=== PATIENT | female | born 1985 | race Caucasian/White ===

== ENCOUNTER 2021-12-07 19:18 | Outpatient (CLI) | payer BC ==
[~2021-12-07] VITALS: Ht 172.7 cm; Wt 127.2 kg
--- NOTE | 2021-12-07 19:25 | NUR ---
G1L0. 39.4. Ambulatory to LDR 6 with significant other. Clean gown on. EFM and TOCO explained and applied. Pt states she has been michele since 329 today. Reports contractions are about 10mins apart and states pain is all in her back. Denies leaking of fluids or vaginal bleeding. Pt states "I have not been focusing on babies movments but feels like he is moving." Plan of care explained. VS and assessment completed. SVE /-2. 2101: called and updated on pt's status and FHR baseline. Provider reviews FHR strip at home. Orders received. See yiscan notification. 2113: Pt up to the bathroom. 2129: IV started and LR bolus infusing without difficulty. Plan of care explained. Pt sitting on edge of bed and EFM adjusted.
[2021-12-07] MEDS ORDERED: SYNTHROID0.075 MG/T PO (19:43)
[2021-12-07] MEDS ORDERED: SYNTHROID0.175 MG PO (19:44)
[2021-12-07] MEDS ORDERED: PRENATAL MVI PO (19:45)
[2021-12-07] MEDS ORDERED: STOOL SOFTENER100 M2 PO (19:45)
[2021-12-07] MEDS ORDERED: ZYRTEC ALLERGY10 MG PO (19:45)
[2021-12-07] MEDS ORDERED: CLARITIN 1010 MG/TAB PO (19:46)
[2021-12-07 20:00] VITALS: BP 133/80; PULSE 83; TEMP 98.4
[2021-12-07 20:30] VITALS: BP 127/68; PULSE 80
[2021-12-07 21:00] VITALS: BP 128/82; PULSE 85
[2021-12-07 21:30] VITALS: BP 130/74; PULSE 82
[2021-12-07 22:00] VITALS: BP 139/76; PULSE 77
--- NOTE | 2021-12-07 22:30 | NUR ---
IV fluids complete at this time. Pt reports contractions are not as strong since recieving the liter of fluids. IV DC'd. 2245: Discharge instructions given to pt and significant other. Denies questions at this time. Pt ambulatory off unit and home with spouse.
[2021-12-07 22:34] VITALS: BP 129/71; PULSE 85
== END 2021-12-07 22:45 | disposition home or self-care (01) ==
LOC: LDRO 19:18
DX: O47.1 False labor at or after 37 completed weeks of gestation (principal); Z3A.39 39 weeks gestation of pregnancy
CPT/HCPCS: J7120

== ENCOUNTER 2021-12-08 02:05 | Inpatient (IN) | payer BC ==
[~2021-12-08] VITALS: Ht 172.7 cm; Wt 127.2 kg
[2021-12-08] VITALS (38 sets, daily range): BP systolic 108–161; BP diastolic 59–89; PULSE 65–98; TEMP 97.5–97.9
[~2021-12-08 02:05] MED LIST: CLARITIN 1010 MG/TAB PO; PRENATAL MVI PO; STOOL SOFTENER100 M2 PO; SYNTHROID0.075 MG/T PO; SYNTHROID0.175 MG PO; ZYRTEC ALLERGY10 MG PO
--- NOTE | 2021-12-08 02:15 | NUR ---
G1LO 39.5. Return to hospital with increased frequency and pain with contractions. Clean gown on. EFM and TOCO applied. Pt states after she was discharged by the time she returned to hospital her contractions had increased. She tried to take tylenol and benadryl but was unable to get relief. Denies leaking of fluids or vaginal bleeding. States "I dont know if he has been moving." SVE completed and plan of care explained. Pt requesting epidural at this time. 0229: called and updated on pts status. See physican notification. 0240: IV started and labs obtained via IV site. LR bolus infusing without difficulty. 0300: Dilma RAMOS at bedside for epidural placement. Pt assisted to edge of bed. Difficulty tracing FHR due to maternal position and pain level sitting. Procedure explained by RESEARCH [employer] INSIGHTS EXECUTIVE. 0306: Single shot adminitered by Dilma RAMOS. See anesthesia records 0312: Pt assisted to wedge left position per pt's request. Plan of care and safety precautions exlained to pt who verbalized her understanding. Call light within reach. 0405: Vidal catheter inserted without difficulty. SVE 6/100/-2. Pericare provided. Pt going to try and get a nap in. Call light within reach.
[2021-12-08 02:56] LABS: BASO % 0.1 % (0.0-2.0); EOS % 0.1 % (0.0-4.0); GRAN # 9.9 K/mm3 (1.4-6.5); GRAN % 82.1 % (42.2-75.2); HEMOGLOBIN 11.1 g/dl (12.5-16.0); LYMPH # 1.4 K/mm3 (1.2-3.4); LYMPH % 11.3 % (20.0-51.0); MEAN CELL VOLUME 93 fl (80.0-100.0); MEAN CORPUSCULAR HEMOGLOBIN 31 pg (27-31); MEAN CORPUSCULAR HGB CONC 34 g/dl (33.0-37.0); MEAN PLATELET VOLUME 11.8 fl (7.4-10.4); MONO # 0.7 K/mm3 (0.1-0.6); MONO % 5.6 % (1.7-9.3); PLATELET COUNT 104 K/mm3 (130-400); RED BLOOD COUNT 3.53 M/mm3 (4.10-5.30); REDCELL DISTRIBUTION WIDTH-CV 14.1 % (11.5-14.5)
[2021-12-08 02:58] LABS: HEMATOCRIT 32.8 % (37.0-47.0)
[2021-12-08 06:01] LABS: COLLECTION METHOD CATHETER
[2021-12-08 06:10] LABS: MUCOUS Present (NOT PRESENT); SQUAMOUS EPITHELIAL 0-2 /hpf (0-10); URINE BACTERIA None Seen /hpf (NONE SEEN); URINE RBC 20-50 /hpf (0-2); URINE WBC 0-2 /hpf (0-2)
[2021-12-08 06:11] LABS: PH 5.5 (5-8); URINE APPEARANCE Clear (CLEAR/HAZY); URINE BLOOD 2+ (NEGATIVE); URINE COLOR Yellow (YELLOW); URINE GLUCOSE TRACE (NEGATIVE); URINE KETONE Negative (NEGATIVE); URINE NITRATE Negative (NEGATIVE); URINE PROTEIN(semi-quant) 1+ (NEGATIVE); URINE UROBILINOGEN 0.2 (NEGATIVE)
[2021-12-08 06:29] LABS: ALBUMIN 2.4 gm/dL (3.5-5.0); BILIRUBIN,TOTAL 0.2 mg/dL (0.2-1.2); CALCIUM 8.2 mg/dL (8.4-10.2); CREATININE, serum 0.61 mg/dL (0.57-1.11); POTASSIUM 3.7 mmol/L (3.5-4.5); TOTAL PROTEIN 5.7 gm/dL (6.2-8.1)
--- NOTE | 2021-12-08 10:54 | NUR ---
0945-SVE /+1 BY Elza RICH RN. PROVIDER NOTIFIED VIA TELEPHONE. ORDERS GIVEN TO BEGIN PUSHING. 0950-PT COACHED ON PUSHING. PT VERBALIZED UNDERSTANDING. PT PUSHING WITH CONTRACTIONS. RN CONTINOUSLY AT BEDSIDE MONITORING FHR. PT PUSHING WELL AND COPING WELL. FHR IN THE 140S AT THIS TIME.
[2021-12-09 08:15] VITALS: BP 123/80; PULSE 80; TEMP 97.4
--- NOTE | 2021-12-09 10:21 | NUR ---
Initial visit; Parents thanked Soaking Pit Operator for offering congratulations and God's blessings for the of their son. Soaking Pit Operator thanked family for choosing [facility].
--- NOTE | 2021-12-09 13:35 | NUR ---
REPORT GIVEN TO SAIRA PADGETT WHO ASSUMES CARE OF PT AT THIS TIME.
[2021-12-09 17:09] VITALS: BP 133/83; PULSE 95; TEMP 98.5
[2021-12-09 23:00] VITALS: BP 144/85; PULSE 98; TEMP 98.9
[2021-12-10 07:06] VITALS: BP 136/82; PULSE 76; TEMP 98.2
[2021-12-10] MEDS ORDERED: IBU800 M1 PO (08:22)
[2021-12-10 14:48] VITALS: BP 126/82; PULSE 90; TEMP 99.2
--- NOTE | 2021-12-10 17:04 | NUR ---
DISCHARGE INSTRUCTIONS REVIEWED WITH PATIENT. PATIENT VERBALIZES UNDERSTANDING OF BOARDER STATUS. QUESTIONS ANSWERED.
== END 2021-12-10 17:20 | disposition home or self-care (01) | DRG 807 ==
LOC: LDRO 02:05 → LDR 02:32 → OB 02:32
PROVIDERS: ADMIT Student in an Organized Health Care Education/Training Program
PROC: 10E0XZZ Delivery of Products of Conception, External Approach (ICD-10-PCS; principal; 2021-12-08)
PROC: 0KQM0ZZ Repair Perineum Muscle, Open Approach (ICD-10-PCS; 2021-12-08)
DX: O99.284 Endocrine, nutritional and metabolic diseases complicating childbirth (principal); Z37.0 Single live birth; E03.9 Hypothyroidism, unspecified; O14.04 Mild to moderate pre-eclampsia, complicating childbirth; O72.1 Other immediate postpartum hemorrhage; O70.1 Second degree perineal laceration during delivery; O36.63X0 Maternal care for excessive fetal growth, third trimester, not applicable or unspecified; O99.214 Obesity complicating childbirth; O69.2XX0 Labor and delivery complicated by other cord entanglement, with compression, not applicable or unspecified; Z3A.39 39 weeks gestation of pregnancy
CPT/HCPCS: J2590; J2795; J7120

== ENCOUNTER 2023-03-30 19:00 | Observation (INO) | payer BC ==
[~2023-03-30] VITALS: Ht 175.3 cm; Wt 108.0 kg
[~2023-03-30 19:00] MED LIST changes: +IBU800 M1 PO
[2023-03-30 19:59] LABS: BASO % 0.2 % (0.0-2.0); EOS # 0.1 K/mm3 (0.0-0.7); EOS % 0.6 % (0.0-4.0); GRAN # 9.7 K/mm3 (1.4-6.5); GRAN % 79.8 % (42.2-75.2); HEMATOCRIT 40.5 % (37.0-47.0); HEMOGLOBIN 13.8 g/dl (12.5-16.0); LYMPH # 1.6 K/mm3 (1.2-3.4); LYMPH % 13.1 % (20.0-51.0); MEAN CELL VOLUME 93 fl (80.0-100.0); MEAN CORPUSCULAR HEMOGLOBIN 32 pg (27-31); MEAN CORPUSCULAR HGB CONC 34 g/dl (33.0-37.0); MEAN PLATELET VOLUME 9.2 fl (7.4-10.4); MONO # 0.7 K/mm3 (0.1-0.6); MONO % 5.9 % (1.7-9.3); PLATELET COUNT 213 K/mm3 (130-400); RED BLOOD COUNT 4.34 M/mm3 (4.10-5.30); REDCELL DISTRIBUTION WIDTH-CV 11.8 % (11.5-14.5)
[2023-03-30 20:20] LABS: ALBUMIN 3.8 gm/dL (3.5-5.0); BILIRUBIN,TOTAL 0.4 mg/dL (0.2-1.2); CALCIUM 9.2 mg/dL (8.4-10.2); CREATININE, serum 0.68 mg/dL (0.57-1.11); POTASSIUM 3.9 mmol/L (3.5-4.5); TOTAL PROTEIN 7.8 gm/dL (6.2-8.1)
[2023-03-30 21:29] LABS: COLLECTION METHOD CLEAN CATCH
[2023-03-30 21:56] VITALS: BP 110/73; PULSE 76; TEMP 98.2
[2023-03-30 22:08] LABS: URINE APPEARANCE Clear (CLEAR/HAZY); URINE BLOOD 1+ (NEGATIVE); URINE COLOR Yellow (YELLOW); URINE GLUCOSE Negative (NEGATIVE); URINE KETONE 2+ (NEGATIVE); URINE NITRATE Negative (NEGATIVE); URINE PROTEIN(semi-quant) Negative (NEGATIVE); URINE UROBILINOGEN 0.2 E.U/dL (0.2-1.0)
[2023-03-30 22:09] LABS: MUCOUS Present (NOT PRESENT); URINE BACTERIA Rare /hpf (NONE SEEN); URINE RBC 0-2 /hpf (0-2)
[2023-03-30 22:18] VITALS: BP_SYST 110
--- NOTE | 2023-03-30 22:35 | NUR ---
Admitted to medical floor from ER- right sided abd pain, states pain 2/10 at this time, states the meds given in ER were effective for pain control,, IV fluids LR at 125cc/hr to L/AC, Up in room, steady on feet. NPO. pt states shes will call when pain or nausea meds are needed.
[2023-03-30 23:11] VITALS: BP 116/59; PULSE 85; TEMP 98.1
[2023-03-30 23:20] VITALS: BP 118/83; PULSE 76; TEMP 98.1
[2023-03-31] VITALS (15 sets, daily range): BP systolic 97–133; BP diastolic 53–90; PULSE 71–87; TEMP 97.5–98.3
--- NOTE | 2023-03-31 04:43 | NUR ---
Medicated with Morphine for and pain 06/29,, has been sleeping most of the night, VSS
--- NOTE | 2023-03-31 08:45 | NUR ---
Assessment completed. A/O x4. Requests pain medication for c/o RUQ pain. Morphine adminsitered IV as ordered. Denies other needs at this time. Remains NPO for abdominal US scheduled sometime this morning.
[2023-03-31] MEDS ORDERED: LO LOESTRIN FE1 TAB PO (09:38)
[2023-03-31] MEDS ORDERED: ZYRTEC5 MG PO (09:39)
[2023-03-31] MEDS ORDERED: CLARITIN 1010 MG/TAB PO (09:39)
[2023-03-31] MEDS ORDERED: ULTRAM 50MG TAB50 MG PO (09:41)
[2023-03-31] MEDS ORDERED: CRANBERRY250 MG PO (09:41)
--- NOTE | 2023-03-31 11:35 | NUR ---
Morphine 2mg adminsitered for c/o RUQ pain. Pt to remain NPO. Cholecystectomy scheduled for [address] Simon was in this morning but has not seen anesthesia. Anesthesia consent not signed at this time. Pt to contact nurse if anesthesia visits.
--- NOTE | 2023-03-31 13:27 | NUR ---
Initial visit; Patient thanked Lens Inserter for introducing herself and offering Spiritual Care. Patientthanked Lens Inserter for friendly "Hello" and offering God's blessings.
--- NOTE | 2023-03-31 15:38 | NUR ---
IC-green administered as ordered. LR infusing at TKO. Morphine administered IV for c/o 4/10 pain to RUQ. at bedside.
--- NOTE | 2023-03-31 16:02 | NUR ---
Collections Curator met with patient to discuss discharge planning. Patient lives in [place] with her , Tk (ph#[phone]) who is at bedside. Patient sees Dr. Hardwick for primary care and obtains medications from [facility] with no difficulties. Patient does not use any DME and is indepenent with ADLS. Patient does not have DPOA-HC and was not interested in completing one at this time. Patient plans to return home at time of discharge. Discharge Plan: Home
--- NOTE | 2023-03-31 17:00 | NUR ---
Pt to OR via bed, escorted by Ilsa Mirza RN.
[2023-03-31] MEDS ORDERED: NORCO 325 MG-51 TAB PO (18:50)
--- NOTE | 2023-03-31 19:00 | NUR ---
Reported off to oncoming nurse. Patient has not yet returned from cholecystectomy.
--- NOTE | 2023-03-31 19:30 | NUR ---
Pt to room from PACU- post op ander, nurse in room, together looked at abd sites x4- all glues x4, no drainage - ft bowel sounds, at bedside, did pu on o2 at 2L/nc, sats on RA 92% , no 96-97%, on post op vitals.
--- NOTE | 2023-03-31 20:00 | NUR ---
Slight nausea, denies need for pain meds. Will give Zofran as ordered, at bedside/pt is taking small sips of water.
--- NOTE | 2023-03-31 21:33 | NUR ---
VSS, doin well, will take a Motrin for shoulder pain 05/01,, denies nausea, has eaten some applesauce/crackers , taking good po intake,, Up to bathroom with assist, voiding well,, will INT her fluids whne this current bag is completed{another 1-2 hours} pt happy with that-- states she is ready to go home in the morning!
[2023-04-01 00:25] VITALS: BP 99/67; PULSE 80; TEMP 98.1
[2023-04-01 03:01] VITALS: BP 97/59; PULSE 71; TEMP 98.2
[2023-04-01 04:10] VITALS: BP_SYST 97
--- NOTE | 2023-04-01 04:36 | NUR ---
Motrin given for right shoulder pain at this time, has been up to bathroom voiding numerous times, IV fluids stopped, INT to left AC site. Taking good amounts of oral without nausea, has had some crackers and more applesauce, sites x4 to abd all approximated- no drainage..States passing flatus
[2023-04-01 07:44] VITALS: BP 99/64; PULSE 72; TEMP 98
[2023-04-01 09:00] VITALS: BP_SYST 99
--- NOTE | 2023-04-01 09:50 | NUR ---
Discharge instructions reviewed- patient verbalizes understanding. INT to LAC d/c'd with cath tip intact. Pt escorted to private vehicle via w/c and discharged home with mother.
== END 2023-04-01 09:50 | disposition home or self-care (01) ==
LOC: COL.ER 19:00 → MEDICAL 20:56
PROVIDERS: Emergency Medicine; ADMIT Surgery
DX: K80.00 Calculus of gallbladder with acute cholecystitis without obstruction (principal); K80.12 Calculus of gallbladder with acute and chronic cholecystitis without obstruction; K82.1 Hydrops of gallbladder; K82.8 Other specified diseases of gallbladder
CPT/HCPCS: G0378; J0690; J1100; J1885; J2270; J2405; J2704; J3010; J7120